=== PATIENT | female | born 1965 | race Caucasian/White ===

== ENCOUNTER → 2020-06-21 17:29 | Outpatient (CLI) | payer OTHER, SELFPAY ==
[2020-06-21 17:32] LABS: Pathologist Comment May follow
[2020-06-21 17:55] LABS: Synovial Fld Mononuclear WBC % 96.5 %; Synovial Fld Polynuclear WBC # 0.144 10^3/uL; Synovial Fld Polynuclear WBC % 3.5 %
[2020-06-21 18:18] LABS: AUTO B FLUID DILUENT BKGD CT WBC <0.1 RBC <0.01 (W<.1,R<.01); Appearance /Synovial Fluid Cloudy (CLEAR); CRYSTALS, BODY FLUID See PATH REV; Color / Synovial Fluid Yellow (Pale Yellow); Source / Synovial Fluid LEFT KNEE; Source- Body Fluid SYNOVIAL
[2020-06-21 18:33] LABS: RBC /Synovial Fluid 24 /mm3 (0)
[2020-06-21 18:42] LABS: Body Fluid QC Type(s) BF1Q,BF2Q; Lymph 6 %; Monocyte /Synovial Fluid 92 %; Neutrophil 2 % (0-25)
[2020-06-24 12:52] LABS: Pathologist Review Reviewed
== END ==
PROVIDERS: Visit Provider Internal Medicine Rheumatology
DX: L40.59 Other psoriatic arthropathy (principal); L40.8 Other psoriasis; G25.81 Restless legs syndrome; K76.0 Fatty (change of) liver, not elsewhere classified; Z85.820 Personal history of malignant melanoma of skin
CPT/HCPCS: 87070; 87075; 87205; 89050; 89051; 89060

== ENCOUNTER → 2020-12-02 14:00 | Outpatient (CLI) | payer OTHER, SELFPAY ==
[2020-12-02 15:31] LABS: Absolute Lymphocyte Count 1.99 X10^3/uL (0.83-4.51); Absolute Neutrophil Count 4.3 X10^3/uL (2.0-7.7); Basophil# 0.05 X10^3/uL; Basophil% 0.7 % (0-1); Eosinophil# 0.24 X10^3/uL; Eosinophils% 3.4 % (0-5); Hemoglobin 15.1 g/dL (12.0-15.0); Lymphocyte # 1.99 X10^3/ul (4.0); Lymphocyte % 28.5 % (19-41); Mean Corp Hgb Conc 32.8 g/dL (32-36); Mean Corpuscular Hgb 30.9 pg (27.0-32.0); Mean Corpuscular Volume 94.3 fL (81-99); Mean Platelet Vol. 9.4 fl (6.2-12.0); Monocyte# 0.42 X10^3/uL; NRBC Flagged by Analyzer 0 % (0-5); Neutrophil # 4.27 X10^3/uL (2.7-7.7); Neutrophil % 61.1 % (47-70); Platelet Count 326 K/mm3 (150-450); RBC Distribution Width CV 12.6 % (11.6-14.6); RBC Distribution Width SD 43.5 fl (35.1-43.9); Red Blood Count 4.88 M/mm3 (4.2-5.4)
[2020-12-02 15:37] LABS: Erythrocyte Sedimentation Rate 6 mm/hr (0-30)
[2020-12-02 16:05] LABS: AST(SGOT) 40 U/L (15-37); Alanine Aminotransfer ALT/SGPT 43 U/L (13-56); Albumin, Serum 3.9 g/dL (3.2-5.0); Alkaline Phosphatase 124 U/L (45-117); Anion Gap 8 (5-15); BUN 12 mg/dL (7-18); BUN/Creat Ratio 17.5 RATIO (10-20); CRP 7.87 mg/L (0.0-3.0); Calcium,Total 9.6 mg/dL (8.5-10.1); Chloride 106 mmol/L (98-107); Creatinine, Serum 0.68 mg/dL (0.55-1.02); EST Glomerular Filtration Rate 95 mL/min (>60); Est Glom Filt Rate - Afr Amer 115 mL/min (>60); Globulin 3.9 g/dL (2.2-4.2); Glucose 96 mg/dL (74-106); Potassium 3.9 mmol/L (3.5-5.1); Protein, Total 7.8 g/dL (6.4-8.2); Sodium Level 138 mmol/L (136-145)
== END ==
PROVIDERS: PCP Family Medicine; Referring Provider Internal Medicine Rheumatology; Visit Provider Internal Medicine Rheumatology
DX: L40.59 Other psoriatic arthropathy (principal); L40.8 Other psoriasis; K76.0 Fatty (change of) liver, not elsewhere classified; G25.81 Restless legs syndrome; Z85.820 Personal history of malignant melanoma of skin; Z79.899 Other long term (current) drug therapy
CPT/HCPCS: 36415; 80053; 85025; 85652; 86140

== ENCOUNTER → 2020-12-03 17:43 | Outpatient (CLI) | payer OTHER, SELFPAY ==
[2020-12-03 17:45] LABS: Pathologist Comment May follow
[2020-12-03 18:54] LABS: Synovial Fld Mononuclear WBC % 77.7 %; Synovial Fld Polynuclear WBC % 22.3 %
[2020-12-03 20:43] LABS: Lymph 25 %; Monocyte /Synovial Fluid 18 %; Neutrophil 46 % (0-25); Other Cell /Synovial Fluid 11 %
[2020-12-03 20:45] LABS: AUTO B FLUID DILUENT BKGD CT WBC <0.1 RBC <0.01 (W<.1,R<.01); Appearance /Synovial Fluid Sl Cl (CLEAR); Color / Synovial Fluid Yellow (Pale Yellow); RBC /Synovial Fluid 994 /mm3 (0); Source / Synovial Fluid LEFT KNEE; Source- Body Fluid SYNOVIAL; Synovial Fld Mononuclear WBC # 2.794 10^3/ul
[2020-12-03 20:47] LABS: Body Fluid QC Type(s) BF2Q,BF3Q
[2020-12-04 13:38] LABS: Pathologist Review Reviewed
== END ==
PROVIDERS: PCP Family Medicine; Referring Provider Internal Medicine Rheumatology; Visit Provider Internal Medicine Rheumatology
DX: L40.59 Other psoriatic arthropathy (principal); L40.8 Other psoriasis; M25.562 Pain in left knee; K76.0 Fatty (change of) liver, not elsewhere classified; G25.81 Restless legs syndrome; Z85.820 Personal history of malignant melanoma of skin; Z79.899 Other long term (current) drug therapy
CPT/HCPCS: 87070; 87075; 87205; 89050; 89051; 89060